=== PATIENT | male | born 1995 | race Caucasian/White ===

== ENCOUNTER → 2016-03-28 | Outpatient (CLI) | payer OTHER, MEDICAID ==
--- NOTE | 2016-03-28 18:29 | DX ---
PA and Lateral Chest History: Follow-up pneumothorax; comparison prior studies October 05, 2015 and September 02, 2015. Findings: The heart and mediastinum are normal. Pulmonary vascularity is normal. The lungs are clear. There is no pleural fluid. There is no residual pneumothorax at the right lung apex. A surgical suture line is seen over the lef t upper lobe medially. Impression: Negative for pneumothorax.
== END ==
LOC: FIMAGING 15:14
PROVIDERS: ATTEND Surgery
DX: Z09 Encounter for follow-up examination after completed treatment for conditions other than malignant neoplasm (principal)